=== PATIENT | female | born 1955 | race Caucasian/White ===

== ENCOUNTER 2022-11-01 14:00 | Inpatient (IN) | payer MEDICARE ==
[~2022-11-01] VITALS: Ht 172.7 cm; Wt 72.3 kg
[2022-11-01 15:04] LABS: Hematocrit 39.1 % (33.0-51.0); Hemoglobin 13.1 g/dL (11.5-16.0); Mean Corpuscular HGB 30.3 pg (26.0-34.0); Mean Corpuscular HGB Conc 33.5 g/dL (31.5-36.5); Mean Corpuscular Volume 90 fL (80-100); Mean Platelet Volume 9.1 fL (9.1-12.4); Platelet Count 445 K/mm3 (150-400); RDW Coefficient Variation 13.1 % (11.7-14.2); RDW Standard Deviation 43.4 fL (35.1-46.3); Red Blood Cell Count 4.33 M/mm3 (3.80-5.20); White Blood Cell Count 25.55 K/mm3 (4.00-11.30)
[2022-11-01 15:15] LABS: Albumin/Globulin Ratio 0.3 (0.8-1.8); Bilirubin, Total 0.3 mg/dL (0.1-1.0); Bun/Creatinine Ratio 22.5 (12.0-20.0); Calcium, Blood 14.9 mg/dL (8.5-10.1); Creatinine, Blood 1.38 mg/dL (0.40-1.00); Globulin, Blood 6.3 g/dL (2.2-4.0); Potassium, Blood 3.4 mmol/L (3.5-5.5); Total Protein, Blood 8.3 g/dL (6.4-8.2)
[2022-11-01 15:33] LABS: BAND PERCENT MAN 2 % (0-8); BASOPHILS PERCENT MAN 0 % (0-2); EOSINOPHILS ABSOLUTE MAN 0.25 K/mm3 (0.00-0.68); EOSINOPHILS PERCENT MAN 1 % (0-6); LYMPHOCYTES ABSOLUTE MAN 1.27 K/mm3 (0.84-5.20); LYMPHOCYTES PERCENT MAN 5 % (21-46); MONOCYTES ABSOLUTE MAN 1.53 K/mm3 (0.16-1.47); MONOCYTES PERCENT MAN 6 % (4-13); NEUTROPHILS ABSOLUTE MAN 22.48 K/mm3 (1.96-9.15); SEG NEUTROPHILS PERCENT MAN 86 % (41-73); TOTAL CELLS COUNTED 100
[2022-11-01 15:34] LABS: Influenza A, PCR NEGATIVE (NEGATIVE); Influenza B, PCR NEGATIVE (NEGATIVE); Resp Syncytial Virus, PCR NEGATIVE (NEGATIVE); SARS-Cov-2 (COVID-19) PCR, MMC NEGATIVE (NEGATIVE)
[2022-11-01 18:49] LABS: Free Thyroxine 1.36 ng/dL (0.70-1.60)
[2022-11-01 18:51] LABS: Thyroid Stimulating Hormone 1.57 uIU/mL (0.360-4.800); Triiodothyronine, Free 1.53 pg/mL (2.18-3.98)
[2022-11-01 20:55] LABS: Base Excess Venous 5.8 mmol/L; Bicarbonate Venous 28.8 mmol/L (24.0-30.0); pH Blood Venous 7.41 (7.34-7.37)
--- NOTE | 2022-11-01 21:45 | NUR ---
RECEIVED HAND OFF FROM Benito ALDRICH RN USING SBAR. TRANSPORTED TO ROOM PCU 18 VIA STRETCHER. TRANSFERED TO BED WITH FULL STAFF ASSIST, TOLERATED WELL. AAOX3, TERRELL, FOLLOWS ALL COMMANDS. TRANSFERED TO BED WITH FULL STAFF ASSISTANCE DUE TO GENERALIZED WEAKNESS. ORIENTED TO ROOM, CALL SYSTEM, AND POC, VOICES UNDERSTANDING. RESPIRATIONS LABORED WITH EXERTION ON O2 AT 2L/NC. LUNG SOUNDS COARSE WITH CRACKLES, AND DIMINISHED IN ALL SCHAFER. REPORTS A NONPRODUCTIVE COUGH. ABDOMEN SOFT AND NONDISTENDED. BOWEL SOUNDS NOTED IN ALL QUADS. STATES THAT SHE HAD A NORMAL BM TODAY. REPORTED THAT SHE HAS BEEN INCONTINENT OF BLADDER AT HOME DUE TO WEAKNESS. RASH NOTED FROM LOW BACK TO MID THIGH REPORTEDLY FROM INCONTINENCE AND WEAKNESS. RIGHT AND LEFT FA'S WITH 20G PIV ARE PATENT, EACH FLUSHING WITH EASE. NO EDEMA NOTED. SCD'S APPLIED PER MD ORDERS. DENIES PAIN, DISCOMFORT, OR FURTHER NEEDS AT THIS TIME. ADMISSION ASSESSMENT IN PROGRESS. SAFETY MEASURES IN PLACE. WILL CONTINUE TO MONITOR AND ADDRESS NEEDS THEY ARISE.
--- NOTE | 2022-11-02 03:25 | NUR ---
ROUNDING ON PT AFTER O2 SAT SHOWED LOW. BRIEF SATURATED IN BERNARDINO CONCENTRATED FOUL SMELLING URINE. PERICARE, BRIEF CHANGE, AND PARTIAL OCCUPOED BED CHANGE COMPLETED WITH PT ASSISTANCE WITH TURNING IN BED. WARM BLANKETS PROVIDED FOR HER COMFORT. SAFETY MEAURES IN PLACE. WILL CONTINUE TO MONITOR AND ADDRESS NEEDS THEY ARISE.
[2022-11-02 04:23] LABS: BASOPHILS ABSOLUTE AUTO 0.09 K/mm3 (0.00-0.23); BASOPHILS PERCENT AUTO 0 % (0-2); EOSINOPHILS ABSOLUTE AUTO 0.51 K/mm3 (0.00-0.68); EOSINOPHILS PERCENT AUTO 2 % (0-6); Hematocrit 32.4 % (33.0-51.0); Hemoglobin 10.8 g/dL (11.5-16.0); IMMATURE GRAN ABSOLUTE AUTO 0.44 K/mm3 (0.00-0.10); IMMATURE GRAN PERCENT AUTO 2 % (0-1); LYMPHOCYTES ABSOLUTE AUTO 1.29 K/mm3 (0.84-5.20); LYMPHOCYTES PERCENT AUTO 5 % (21-46); MONOCYTES ABSOLUTE AUTO 2.25 K/mm3 (0.16-1.47); MONOCYTES PERCENT AUTO 9 % (4-13); Mean Corpuscular HGB 29.9 pg (26.0-34.0); Mean Corpuscular HGB Conc 33.3 g/dL (31.5-36.5); Mean Corpuscular Volume 90 fL (80-100); Mean Platelet Volume 9.3 fL (9.1-12.4); NEUTROPHILS ABSOLUTE AUTO 20.82 K/mm3 (1.96-9.15); NEUTROPHILS PERCENT AUTO 82 % (41-73); Platelet Count 398 K/mm3 (150-400); RDW Coefficient Variation 13.2 % (11.7-14.2); RDW Standard Deviation 43.9 fL (35.1-46.3); Red Blood Cell Count 3.61 M/mm3 (3.80-5.20)
[2022-11-02 04:36] LABS: International Normalized Ratio 1.14; Prothrombin Time Results 11.9 Sec (9.7-11.5)
[2022-11-02 04:44] LABS: Magnesium, Blood 1.6 mg/dL (1.6-2.4)
[2022-11-02 04:55] LABS: Albumin, Blood 1.5 g/dL (3.4-5.0); Albumin/Globulin Ratio 0.3 (0.8-1.8); Bilirubin, Total 0.2 mg/dL (0.1-1.0); Bun/Creatinine Ratio 21.6 (12.0-20.0); Calcium, Blood 13.7 mg/dL (8.5-10.1); Creatinine, Blood 1.16 mg/dL (0.40-1.00); Globulin, Blood 4.8 g/dL (2.2-4.0); Potassium, Blood 3.6 mmol/L (3.5-5.5)
[2022-11-02 04:59] LABS: Total Protein, Blood 6.3 g/dL (6.4-8.2)
--- NOTE | 2022-11-02 06:08 | NUR ---
LYING IN SEMI FOWLERS WITH EYES CLOSED, HAS RESTED WELL SINCE ADMISSION. CONTINUES WITH TACHYCARDIA WITH EXERTION. RIGHT FA 20G PIV REMAIN PATENT WHILE INFUSING NS AT 200ML/HR. LEFT FA SL 20G REMAINS PATENT. INCONTINENT OF BLADDER, BRIEF PLACED AFTER SHE SATURATED BED. REMAINS ON O2 AT 2L/NC. DENIES PAIN, DISCOMFORT, OR FURTHER NEEDS. SAFETY MEASURES IN PLACE. WILL CONTINUE TO MONITOR AND ADDRESS NEEDS THEY ARISE.
--- NOTE | 2022-11-02 09:36 | NUR ---
Joint visit with Dr Casarez, this PC RN, and Primary RN Marlene. Dr Casarez reviews plan of care and discusses imaging findings including the suspicion of cancer. Dr Casarez discusses options including scheduling biopsy and consulting oncology. Pt is in agreement with this option. After Dr Hermelindo rizzo examining Pt this RN remained behind and offered supportive visit. Offered therapeutic listening, answered questions, and validated concerns. Received verbal permission from Pt to call her daughter to include her with this news. Called and spoke with daughter Leatha. Provided update, reviewed plan of care, and answered questions. Leatha reports plan to leave house in [place] soon and will arrive at the hospital in a couple of hours. Provided Palliative Care contact information and instructed to call with any questions or concerns. Palliative Care will remain available for supportive visits.
[2022-11-02 12:18] LABS: Source, Urine Clean Catch
[2022-11-02 12:26] LABS: Bilirubin, Urine Neg (Neg); Blood, Urine 1+ (Neg); Glucose Qualitative, Urine Neg (Neg); Ketones, Urine Neg (Neg); Leukocyte Esterase, Urine Neg (Neg); Nitrite, Urine Neg (Neg); Protein, Urine 2+ (Neg); Urobilinogen, Urine NORM (Normal)
[2022-11-02 12:35] LABS: Appearance, Urine Clear (Clear); Color, Urine Yellow (P-Yellow)
[2022-11-02 12:37] LABS: Bacteria Rare /hpf; Red Blood Cells, Urine 0-2 /hpf (0-2); Squamous Epithelial Cells Few /hpf (Few)
--- NOTE | 2022-11-02 13:48 | NUR ---
Mutliple visits today as Pt's children arrives to offer support and answer questions. Pt and family agreeable for biopsy and oncology consult. Palliative Care will remain available.
--- NOTE | 2022-11-02 18:24 | NUR ---
SHIFT SUMMARY ASSUMED CARE AT 0700. A/A/OX2-3. CONFUSED AT TIMES EARLIER IN SHIFT BUT GRADUALLY IMPROVES. MOVES SELF ON GURNEY NEEDED, WORKED WITH PHYSICAL THERAPY TODAY. FAMILY AT BEDSIDE AND MET WITH PALLATIVE CARE. 5L 02 VIA [place] TO MAINTAIN SATS OF 93%. YAN CATH PLACED TODAY AND 24 HOUR URINE STARTED AT 10AM. NO ACUTE MEDICAL CHANGES, VSS, WILL CONTINUE TO MONITOR AND TREAT UNTTIL CHANGE OF SHIFT.
[2022-11-03 03:52] LABS: BASOPHILS ABSOLUTE AUTO 0.09 K/mm3 (0.00-0.23); BASOPHILS PERCENT AUTO 0 % (0-2); EOSINOPHILS ABSOLUTE AUTO 0.65 K/mm3 (0.00-0.68); EOSINOPHILS PERCENT AUTO 3 % (0-6); Hematocrit 30.5 % (33.0-51.0); Hemoglobin 10.3 g/dL (11.5-16.0); IMMATURE GRAN ABSOLUTE AUTO 0.45 K/mm3 (0.00-0.10); IMMATURE GRAN PERCENT AUTO 2 % (0-1); LYMPHOCYTES ABSOLUTE AUTO 1.21 K/mm3 (0.84-5.20); LYMPHOCYTES PERCENT AUTO 5 % (21-46); MONOCYTES ABSOLUTE AUTO 1.82 K/mm3 (0.16-1.47); MONOCYTES PERCENT AUTO 8 % (4-13); Mean Corpuscular HGB 30.6 pg (26.0-34.0); Mean Corpuscular HGB Conc 33.8 g/dL (31.5-36.5); Mean Corpuscular Volume 91 fL (80-100); Mean Platelet Volume 9.1 fL (9.1-12.4); NEUTROPHILS ABSOLUTE AUTO 19.52 K/mm3 (1.96-9.15); NEUTROPHILS PERCENT AUTO 82 % (41-73); Platelet Count 379 K/mm3 (150-400); RDW Coefficient Variation 13.5 % (11.7-14.2); RDW Standard Deviation 44.4 fL (35.1-46.3); Red Blood Cell Count 3.37 M/mm3 (3.80-5.20); White Blood Cell Count 23.74 K/mm3 (4.00-11.30)
[2022-11-03 05:59] LABS: Bun/Creatinine Ratio 15.7 (12.0-20.0); Calcium, Blood 12.9 mg/dL (8.5-10.1); Creatinine, Blood 1.08 mg/dL (0.40-1.00); Potassium, Blood 3.5 mmol/L (3.5-5.5)
--- NOTE | 2022-11-03 06:33 | NUR ---
POSSIBLY NEEDING SOMETHING OTHER THAN TYLENOL FOR PAIN? IT WAS DIFFICULT TO GET A CONSISTENT RESPONSE FROM PT REGARDING PAIN LEVEL AND LOCATION HOWEVER SHE CONTINUED TO MAKE MOANING SOUNDS AND RESIST MOVEMENT OR REPOSITIONING THROUGHOUT THE NIGHT DESPITE RECIEVING ORDERED TYLENOL, WHEN ASKED HOWEVER IF TYLENOL WAS EFFECTIVE PT DID SAY YES. TMAX 99.8, ST UP TO 120-130 BUT ENDING THE SHIFT SR AT 97, 3LPM NC, 24 HR URINE IN PROGRESS AND WILL COMPLETE AT 1000, CALCIUM IMPROVED THIS AM 12.7
[2022-11-03 08:28] LABS: Carcinoembryonic Antigen 24.5 ng/mL (0.0-3.0)
[2022-11-03 08:35] LABS: Cancer Antigen 125 106.7 U/mL (1.5-35.0)
--- NOTE | 2022-11-03 12:24 | NUR ---
AM NOTE: PATIENT ALERT AND ORIENTED TO SELF, PLACE AND FAMILY. VERY SOFT SPOKEN AND WITHDRAWN. PATIENT DENIES PAIN ALL AM, BUT MOAN AND GROANS WHEN MOVING. WHEN WORKING WITH PT, SHE COMPLAINS OF BACK PAIN, MEDICATED PER EMAR WITH TYLENOL. VERY WEAK AND FRAGILE. ON 3L NASAL CANNULA SATING 93% UPON SHIFT START. PATIENT ROLLED TO CHANGE LINEN AND BOOST IN BED FOR BREAKFAST AND DESATED TO MID 80'S. UNABLE TO RECOVER ON 3L. RESP CALLED, TITRATED UP TO 15L HIGH FLOW NASAL CANNULA. NOW AT 8L HIGH FLOW SATING 90-93%. DENIES SOB. SOME CRACKLES HEARD WELL COARSENESS. OCCASIONAL MOIST SOUNDING COUGH. TELE SHOWING SR/ST WITH HR 90-110'S. DENIES CHEST PAIN/PRESSURE. PPP. BP STABLE. NO SIGNS OF EDEMA. DENIES ABDOMINAL PAIN/NAUSEA. EATING SMALL AMOUNTS. TAKING PILLS CRUSHED OR CUT IN HALF. YAN CATH IN PLACE DRAINING CLEAR/YELLOW URINE. 24 HOURS URINE SAMPLE SENT TO LAB THIS AM. SLEEPING ON AND OFF. DENIES NEED AT THIS TIME. PLAN FOR ONCOLOGY CONSULT. WILL CONTINUE TO MONITOR.
[2022-11-03 12:33] LABS: Calcium, Urine 17.9 mg/dL (< 17.5); Calcium, Urine Calculation 554.9 mg/24hrs (42.0-353.0)
[2022-11-03 16:11] LABS: Bun/Creatinine Ratio 15.6 (12.0-20.0); Calcium, Blood 12.9 mg/dL (8.5-10.1); Creatinine, Blood 1.09 mg/dL (0.40-1.00); Potassium, Blood 3.4 mmol/L (3.5-5.5)
--- NOTE | 2022-11-03 16:33 | NUR ---
DR. GERONIMO CALLED TO UPDATE ON POTASSIUM RESULTING AT 3.4 WELL PATIENT COMPLAINING OF INCREASED PAIN. UNABLE TO GIVE TYLENOL FOR ANOTHER FEW HOURS. THIS RN REQUESTING ADDITIONAL PAIN MEDICATION FOR BREAK THROUGH PAIN. NO NEW ORDERS FOR THIS RN TO PLACE.
--- NOTE | 2022-11-03 18:27 | NUR ---
SHIFT SUMMARY: PATIENT REMAINS WEAK AND LETHARGIC THROUGHOUT SHIFT. DESATING WITH MOVEMENTS. OXYGEN RANGING FROM 6-15L HIGH FLOW NASAL CANNULA. DENIES SOB. COMPLAINS OF GENERAL PAIN AND BACK PAIN. MEDICATED PER EMAR. REMAINS SR/ST ON TELE WITH HR 90-110'S. DENIES CHEST PAIN/PRESSURE. BP REMAINS STABLE. EATING SMALL AMOUNTS WELL DRINKING ENSURE. SON IN TO VISIT AND UPDATED ON PLAN OF CARE. WAITING FOR ONCOLOGY CONSULT. 24 HOUR URINE COLLECTED THIS SHIFT. NS CONTINUES TO INFUSE AT 100 ML/HR.
[2022-11-04 03:49] LABS: BASOPHILS ABSOLUTE AUTO 0.08 K/mm3 (0.00-0.23); BASOPHILS PERCENT AUTO 0 % (0-2); EOSINOPHILS ABSOLUTE AUTO 0.53 K/mm3 (0.00-0.68); EOSINOPHILS PERCENT AUTO 2 % (0-6); Hematocrit 31.9 % (33.0-51.0); Hemoglobin 10.4 g/dL (11.5-16.0); IMMATURE GRAN ABSOLUTE AUTO 0.61 K/mm3 (0.00-0.10); IMMATURE GRAN PERCENT AUTO 2 % (0-1); LYMPHOCYTES ABSOLUTE AUTO 1.05 K/mm3 (0.84-5.20); LYMPHOCYTES PERCENT AUTO 4 % (21-46); MONOCYTES PERCENT AUTO 8 % (4-13); Mean Corpuscular HGB Conc 32.6 g/dL (31.5-36.5); Mean Corpuscular Volume 92 fL (80-100); Mean Platelet Volume 9.2 fL (9.1-12.4); NEUTROPHILS ABSOLUTE AUTO 21.48 K/mm3 (1.96-9.15); NEUTROPHILS PERCENT AUTO 83 % (41-73); Platelet Count 395 K/mm3 (150-400); RDW Coefficient Variation 13.7 % (11.7-14.2); RDW Standard Deviation 45.7 fL (35.1-46.3); Red Blood Cell Count 3.47 M/mm3 (3.80-5.20); White Blood Cell Count 25.75 K/mm3 (4.00-11.30)
--- NOTE | 2022-11-04 05:43 | NUR ---
PT PAIN DID EXTREMELY WELL WITH THE 1 DOSE OF NORCO, SHE WAS ABLE TO ASSIST IN TURNING, NO ASISTANCE NEEDED WITH DRINKING, USING THE REMOTE, ETC...WEANED DOWN TO 8LPM UNTIL LAYING FLAT FOR CLEANING, PT VOMITED AND RECIEVED ONE DOSE OF ZOFRAN IV, O2 INCREASED TO 15 LPM, ALSO REQUIRED NRB ADDITIONALY FOR 15 MIN TO FULLY RECOVER, BM OVERNIGHT, GOOD UO, NO CHANGE IN VS, AFEBRILE
[2022-11-04 09:45] LABS: Albumin, Blood 1.4 g/dL (3.4-5.0); Albumin/Globulin Ratio 0.3 (0.8-1.8); Bilirubin, Total 0.2 mg/dL (0.1-1.0); Bun/Creatinine Ratio 15.1 (12.0-20.0); Creatinine, Blood 1.06 mg/dL (0.40-1.00); Potassium, Blood 3.7 mmol/L (3.5-5.5); Total Protein, Blood 6.4 g/dL (6.4-8.2)
[2022-11-04 09:46] LABS: Calcium, Blood 13.7 mg/dL (8.5-10.1)
--- NOTE | 2022-11-04 18:39 | NUR ---
PT SUMMARY: PT HAS BEEN ON 15L OF O2 VIA NASAL CANNULA HI BERNARD, PT DESATS WITH EXERTION USES NON REBREATHER MASK AT THE BEDSIDE TO RECOVER, PT RECOVERS QUICK. SATS WILL STAY ABOVE 90% WHEN SLEEPING AND NOT MOVING, PT DESATS TO 85% WHEN AWAKE AND EATING. PT INSTRUCTED ABOUT THE USE ON NON REBREATHER MASK AND PT WAS ABLE TO DEMONSTRATE AND HAS BEEN USING SINCE THEN. VITALS HRR SR/ST 90-110'S, SBP 100-110'S, AFEBRILE. PT HAS A LOT OF FAMILY CAME IN TO VISIT AND SUPPORT PT TODAY. ALSO WAS ABLE TO DISCUSS WITH DR WALTERS THE ONCOLOGIST ABOUT THE PLAN, PT TO DO CT BIOPSY PROCEDURE OF [place] TOMORROW AT 2PM, PT RECEIVED A DOSE OF LOVENOX THIS MORNING SO PT WAS ORDERED TO RECHECK IN AM BEFORE THE PROCEDURE AND TO HOLD LOVENOX DOSE IN AM. PT WAS OFFERED PAIN MEDICINE REFUSED AND REQUESTED TYLENOL INSTEAD AND WAS GIVEN, PT PAINFUL WHEN MOVING AND TURNING ALSO STARTED COUGING AND GAGGING AFTER GIVING PT A BED BATH TODAY AND WAS ABLE TO COUGH UP THICK BROWN SPUTUM, SUCTION SET UP AT BEDSIDE PRN, PT ALSO REFUSED ANTI NAUSEA MEDICINE AND HAS JUST BEEN DRINKING SODA SEEMED TO BE EFFECTIVE. PT WAS GIVEN A DOSE OF ZOMETA TODAY DUE TO HIGH CALCIUM LEVELS. PT ABLE TO GET UP TO USE THE BEDSIDE COMMODE HAD A BOWEL MOVEMENT TODAY, NO OTHER ISSUES ENCOUNTERED ABLE TO MAKE NEEDS KNOWN, WILL REPORT TO ONCOMING SHIFT
--- NOTE | 2022-11-04 21:24 | NUR ---
ASSUMPTION OF CARE THIS RN ASSUMED CARE OF PATIENT AT 1900. REPORT TAKEN FROM DELORES PEDRO. PATIENT ON 15L VIA NC WITH 15L NONREBREATHER ON STANDBY. PATIENT REQUIRES NONREBREATHER WITH ACTIVITY SPO2 DESATS INTO THE LOW 80'S WITH ONLY NC ON. PATIENT APPEARS LETHARGIC AND WEAK. BP STABLE. ST ON MONITOR WITH HR 110-120'S. AFEBRILE. PATIENT TOOK MEDICATIONS WELL. ORIENTED X3. CONFUSION ABOUT PLACE AND STATED THAT SHE WAS "IN [facility]". PATIENT BEING TURNED FREQUENTLY AND STATES SHE IS HAVING PAIN "EVERYWHERE" BUT REFUSING MEDICATIONS AT THIS TIME. YAN CATHETER PATENT AND DRAINING TO GRAVITY. BED IN LOWEST POSITION AND CALL LIGHT WITHIN REACH. THIS RN WILL CONTINUE TO MONITOR AND PROVIDE INTERVENTIONS NEEDED/ORDERED DURING THIS SHIFT.
[2022-11-05 04:05] LABS: BASOPHILS PERCENT AUTO 0 % (0-2); EOSINOPHILS ABSOLUTE AUTO 0.59 K/mm3 (0.00-0.68); EOSINOPHILS PERCENT AUTO 2 % (0-6); Hematocrit 32.8 % (33.0-51.0); Hemoglobin 10.4 g/dL (11.5-16.0); IMMATURE GRAN ABSOLUTE AUTO 0.83 K/mm3 (0.00-0.10); IMMATURE GRAN PERCENT AUTO 3 % (0-1); LYMPHOCYTES PERCENT AUTO 3 % (21-46); MONOCYTES ABSOLUTE AUTO 1.62 K/mm3 (0.16-1.47); MONOCYTES PERCENT AUTO 6 % (4-13); Mean Corpuscular HGB 29.7 pg (26.0-34.0); Mean Corpuscular HGB Conc 31.7 g/dL (31.5-36.5); Mean Corpuscular Volume 94 fL (80-100); Mean Platelet Volume 9.3 fL (9.1-12.4); NEUTROPHILS ABSOLUTE AUTO 23.57 K/mm3 (1.96-9.15); NEUTROPHILS PERCENT AUTO 86 % (41-73); Platelet Count 372 K/mm3 (150-400); RDW Coefficient Variation 13.8 % (11.7-14.2); RDW Standard Deviation 47.2 fL (35.1-46.3); White Blood Cell Count 27.41 K/mm3 (4.00-11.30)
[2022-11-05 04:11] LABS: IMMUNOGLOBULIN A, QN, SERUM 387 mg/dL (87-352); IMMUNOGLOBULIN G, QN, SERUM 1313 mg/dL (586-1602); IMMUNOGLOBULIN M, QN, SERUM 123 mg/dL (26-217)
[2022-11-05 04:25] LABS: Bun/Creatinine Ratio 15.2 (12.0-20.0); Calcium, Blood 12.6 mg/dL (8.5-10.1); Creatinine, Blood 0.99 mg/dL (0.40-1.00); Potassium, Blood 3.4 mmol/L (3.5-5.5)
--- NOTE | 2022-11-05 05:17 | NUR ---
SHIFT SUMMARY PATIENT HAS BEEN ALERT/LETHARGIC AND ORIENTED X3. PATIENT ORIGINALLY ON 15L HFNC WITH 15L NONREBREATHER FOR ACTIVITY AT BEGINNING OF SHIFT. PATIENT PROGRESSIVELY STARTED TO DESAT MORE AND REQUIRED MORE TIME WITH BOTH NONREBREATHER AND HFNC ON TO MAINTAIN SAT >90%. RT CONSULTED AND PATIENT PLACED ON AIRVO 50L 70% FIO2 AROUND [id number]. PATIENT HAD A DIFFICULT TIME ADJUSTING TO OXYGEN AND REMOVED AIRVO FREQUENTLY. PATIENT EDUCATED ON NEED FOR OXYGEN. PATIENT MEDICATED FOR PAIN AND WAS ABLE TO RELAX MORE. ST ON MONITOR WITH HR 110-140'S DEPENDENT ON ACTIVITY AND PAIN. PATIENT SUSTAINING 120'S AT THIS TIME WHILE SHE APPEARS TO BE SLEEPING. NS INFUSING PER EMAR. BP STABLE. AFEBRILE. TURNING Q2HRS AND REQUESTED. YAN CATHETER PATENT AND DRAINING LIGHT YELLOW URINE. SUCTIONING NEEDED FOR SPUTUM. THICK YELLOW/BROWN SPUTUM NOTED. RT CLEANED NARES PRIOR TO AIRVO APPLICATION. BED IN LOWEST POSITION AND CALL LIGHT WITHIN REACH. THIS RN WILL CONTINUE TO MONITOR UNTIL SHIFT CHANGE AT 0700.
[2022-11-05 08:35] LABS: International Normalized Ratio 1.18; Prothrombin Time Results 12.3 Sec (9.7-11.5)
--- NOTE | 2022-11-05 11:31 | NUR ---
Pt resting in bed with her eyes closed and on AIRVO. Lots of family at bedsidee. Offered supportive visit and answered questions. Son Cristhian stepped out. Will F/U when son is back. Spoke with Primary RN Ruth and discussed case. Palliative Care will remain available.
--- NOTE | 2022-11-05 17:12 | NUR ---
PT SUMMARY: PT HAD BIOPSY DONE TODAY TOLERATED WELL. PT REMAINED ON AIRVO SETTINGS AT 50L 75% FIO2 SATS KEPT ABOVE 90%, HRR SR/ST 110-150'S HRR INCREASES WHEN PT DESATS, SBP 100-120'S, AFEBRILE. PT DENIES CHEST PAIN/PRESSURE BUT HAS PAIN ALL OVER, NORCO WAS GIVEN X1 THIS MORNING, PT STILL WEAK AND LETHARGIC ALERT AND ORIENTED X3. MULTIPLE FAMILY CAME IN TO VISIT, SON PORSCHE WAS ABLE TO TALK TO [facility] ABOUT PLAN ON GOING HOME HOSPICE. NO OTHER ISSUES ENCOUNTERED PT WITH POOR APPETITE, YAN DRAINING YELLOW URINE VIA GRAVITY. PT REPOSITIONED FOR COMFORT, ABLE TO MAKE NEEDS KNOWN, CALL LIGHTS IN REACH REPORT GIVEN TO KECIA PEDRO.
--- NOTE | 2022-11-05 20:57 | NUR ---
ASSUMPTION OF CARE THIS RN ASSUMED CARE OF PATIENT AT 1900. REPORT TAKEN FROM KECIA PEDRO. PATIENT WITH FAMILY AT BEDSIDE AT TIME OF SHIFT CHANGE. PATIENT ON AIRVO 50L 80% FIO2 WITH SPO2 >90%. LABORED BREATHING NOTED WITHOUT TACHYPNEA. BP STABLE. ST ON THE MONITOR WITH HR 110-120'S. AFEBRILE. PATIENT ABLE TO MAKE NEEDS KNOWNS. ALERT/LETHARGIC AND ORIENTED X3 WITH CONFUSION ABOUT WHAT CITY SHE IS IN BUT KNOWS SHE IS IN THE HOSPITAL AND REMEMBERS PLAN OF CARE AND SITUATION. HOB ELEVATED. MEDICATING FOR PAIN AND NAUSEA PER EMAR. BED IN LOWEST POSITION AND CALL LIGHT WITHIN REACH. THIS RN WILL CONTINUE TO MONITOR AND PROVIDE INTERVENTIONS NEEDED/ORDERED DURING THIS SHIFT.
--- NOTE | 2022-11-05 23:45 | NUR ---
PATIENT UPDATE THIS RN TO BEDSIDE AT 2230 TO INCREASE FIO2 TO 85% DUE TO PATIENT MAINTAINING SPO2 86-88%. FIO2 INCREASE ONLY MAINTAINED O2 SATS AT 88%. THIS RN INCREASED FIO2 TO 100%. WITH SPO2 91-92%. CALL PLACED TO RT TABATHA. RT TABATHA TO BEDSIDE AROUND 2330 TO ASSESS PATIENT AND SETTINGS. RT DID NOT RECOMMEND FURTHER INTERVENTIONS AT THIS TIME D/T PATIENT'S PROGNOSIS. PATIENT REMAINS ON AIRVO 50L AND FIO2 100%. THIS RN ATTEMPTED DEEP BREATHING AND COUGHING TO CLEAR SECRETIONS. COUGH WEAK AND DRY AND NONPRODUCTIVE AT THIS TIME. SUCTION SET UP AT BEDSIDE. OTHER VITALS STABLE WITH NO CHANGES AT THIS TIME. THIS RN WILL CONTINUE TO MONITOR CLOSELY, TITRATING NEEDED TO MAINTAIN SPO2, AND CONSULTING RT APPROPRIATE.
[2022-11-06 04:32] LABS: BASOPHILS ABSOLUTE AUTO 0.09 K/mm3 (0.00-0.23); BASOPHILS PERCENT AUTO 0 % (0-2); EOSINOPHILS ABSOLUTE AUTO 0.54 K/mm3 (0.00-0.68); EOSINOPHILS PERCENT AUTO 2 % (0-6); Hematocrit 33.5 % (33.0-51.0); Hemoglobin 10.7 g/dL (11.5-16.0); IMMATURE GRAN PERCENT AUTO 3 % (0-1); LYMPHOCYTES ABSOLUTE AUTO 0.89 K/mm3 (0.84-5.20); LYMPHOCYTES PERCENT AUTO 3 % (21-46); MONOCYTES ABSOLUTE AUTO 1.78 K/mm3 (0.16-1.47); MONOCYTES PERCENT AUTO 7 % (4-13); Mean Corpuscular HGB 30.2 pg (26.0-34.0); Mean Corpuscular HGB Conc 31.9 g/dL (31.5-36.5); Mean Corpuscular Volume 95 fL (80-100); Mean Platelet Volume 8.9 fL (9.1-12.4); NEUTROPHILS ABSOLUTE AUTO 23.18 K/mm3 (1.96-9.15); NEUTROPHILS PERCENT AUTO 85 % (41-73); Platelet Count 343 K/mm3 (150-400); RDW Standard Deviation 48.9 fL (35.1-46.3); Red Blood Cell Count 3.54 M/mm3 (3.80-5.20); White Blood Cell Count 27.18 K/mm3 (4.00-11.30)
--- NOTE | 2022-11-06 04:36 | NUR ---
SHIFT SUMMARY NO CHANGES TO NEURO STATUS. PATIENT REMAINS WEAK AND LETHARGIC THROUGH MOST OF THIS SHIFT. FOLLOWING DIRECTIONS. NEEDS TO BE REMINDED TO PUT NASAL CANNULA BACK INTO NOSE. CONTINUES TO BE ON AIRVO WITH SETTINGS 50L 100% FIO2 WITH SPO2 89-92%. DESATS QUICKLY WITH EXERTION AND REMOVAL OF CANNULA AND IS SLOW TO RECOVER. PATIENT ENCOURAGED TO DEEP BREATHE AND COUGH THROUGHOUT THIS SHIFT WITH NOTED WEAK NONPRODUCTIVE COUGH. SEE ASSESSMENT AND PREVIOUS NOTE. PATIENT DENIES PAIN AND NAUSEA AT THIS TIME; MEDICATED PREVIOUSLY IN THE SHIFT FOR BOTH. REPOSITIONING Q2HRS AND PRN. YAN CATHETER DRAINING LIGHT YELLOW URINE TO GRAVITY. PATIENT'S BREATHING APPEARS TO BE LABORED AT REST; NO TACHYPNEA NOTED BUT PATIENT OCCASIONALLY DYSPNEIC. BED IN LOWEST POSITION AND CALL LIGHT WITHIN REACH. THIS RN WILL CONTINUE TO MONITOR UNTIL SHIFT CHANGE AT 0700.
[2022-11-06 04:52] LABS: Calcium, Blood 10.7 mg/dL (8.5-10.1); Creatinine, Blood 0.88 mg/dL (0.40-1.00); Potassium, Blood 3.8 mmol/L (3.5-5.5)
--- NOTE | 2022-11-06 05:56 | NUR ---
PATIENT UPDATE THIS RN AND RT TABATHA TO BEDSIDE DUE TO CONTINUED DESATTING TO MID 80'S. AIRVO SETTINGS CHANGED TO 70L AND 100% FIO2. PATIENT MAINTAINING SPO2 AT 89%. REPORTED DYSPNEA AND NOTED LABORED BREATHING. PATIENT REPORTS FEELING "SHE IS NOT GETTING ENOUGH AIR" DESPITE AIRVO SETTINGS. DRY NONPRODUCTIVE COUGH NOTED. PATIENT REPORTED TO THIS RN THAT SHE DID NOT WANT BIPAP AFTER THIS RN EXPLAINED WHAT BIPAP IS. THIS RN CALLED MD MAO REGARDING PATIENT CONDITION AND LACK OF INTERVENTIONS FOR THIS RN TO PROVIDE TO ASSIST PATIENT. MD MAO TO ROOM WITH RT MAYS. PATIENT VERBALIZED TO MD OF NOT WANTING BIPAP. THIS RN, MD MOA, AND RT MAYS SPOKE REGARDING IV STEROIDS AND BREATHING TREATMENTS. MD MAO TO SPEAK TO DAY TEAM ABOUT IV STEROIDS AND PALLIATIVE/COMFORT CARE DECISION. NO FURTHER ORDERS AT THIS TIME. OTHER VITALS STABLE. NO CHANGES SINCE PREVIOUS NOTE/ASSESSMENT. THIS RN WILL REPORT TO ONCOMING RN.
--- NOTE | 2022-11-06 11:35 | NUR ---
0725 - THIS RN ENTERED ROOM AFTER RECEIVING REPORT AND NOTED PT TACHYPNEIC IN THE 30S, ACCESORY MUSCLE USE, O2 SATURATION IN THE 70S, HR IN THE 140S-160S. PLACED A NONREBREATHER OVER PT'S AIRVO PT STATED (AND HAS STATED) NO BIPAP OR INTUBATION. RT, DR. DEUTSCH, AND PALLIATIVE CARE CALLED. ALSO CALLED FAMILY - ITA AND PORSCHE AND UPDATED ON PT STATUS, THEY ARE ON THEIR WAY FROM [place]. RT TO BEDSIDE TO ADJUST FLOW PT MAXED ON SETTINGS, DR. DEUTSCH AND STEVEN - PALLIATIVE CARE AWAITING ARRIVAL OF FAMILY FROM [place].
--- NOTE | 2022-11-06 11:38 | NUR ---
Multiple visit this AM. Spoke with Primary RN Blanca, Dr Serra, and discussed case. Pt's respiratory status is declining and she is refusing BIPAP. When Pt's daughter and son arrive goals of care conversation took place. Gentle education on comfort care philosophy with V/U made by Pt and family. Offered emotional support and answered questions. Pt and family agreeable for comfort care. Placed comfort care order, comfort care order set, D/C maintenance medications, and placed order for Ativan 1-2 mg IV Every 2 Hours PRN for anxiety per V/O from Dr Serra. Palliative Care will F/U for symptom management and supportive visits.
--- NOTE | 2022-11-06 14:26 | NUR ---
"Spiritual Care | Nurse request - EOL Pt. passed approximately 14:10. Family members are present and appropriately grieving. Facilitate a family review and provide pastoral care and support. prayed with family. Family verbalized gratitude for the spiritual care visit. [facility] is the home of choice."
--- NOTE | 2022-11-06 18:20 | NUR ---
"Spiritual Care Visit | Pt. Extubation Pt. is intubated and familly members are present for the [employer] shift change. Family welcomes my visit. Family members are pleasant but a little unsettled about the scheduled extubation. Listem with empathy and a caring presence. Normalize the Pt. experience. Facilitate life review for 90 minutes. Educated spouse on the EOL procdures. Spouse verbalized that she would get input from her sister. Family verbalized gratitude for the spiritual care visit."
== END 2022-11-06 22:28 | DRG 189 ==
LOC: ER 14:00 → PCU 18:18 → ERHOLD 18:18 → PCU 18:18
PROVIDERS: Family Medicine; Internal Medicine; Internal Medicine Hematology & Oncology; Nurse Practitioner Acute Care; Physician Assistant; ADMIT Internal Medicine
PROC: 3E03329 Introduction of Other Anti-infective into Peripheral Vein, Percutaneous Approach (ICD-10-PCS; 2022-11-01)
PROC: 0BBL3ZX Excision of Left Lung, Percutaneous Approach, Diagnostic (ICD-10-PCS; principal; 2022-11-05)
DX: J96.01 Acute respiratory failure with hypoxia (principal); A41.9 Sepsis, unspecified organism; G92.8 Other toxic encephalopathy; J18.9 Pneumonia, unspecified organism; R65.20 Severe sepsis without septic shock; C78.1 Secondary malignant neoplasm of mediastinum; C78.02 Secondary malignant neoplasm of left lung; C78.01 Secondary malignant neoplasm of right lung; C79.89 Secondary malignant neoplasm of other specified sites; N17.9 Acute kidney failure, unspecified; N39.0 Urinary tract infection, site not specified; E87.20 Acidosis, unspecified; Z20.822 Contact with and (suspected) exposure to COVID-19; Z66 Do not resuscitate; Z51.5 Encounter for palliative care; E83.52 Hypercalcemia; E87.5 Hyperkalemia; E21.0 Primary hyperparathyroidism; E55.9 Vitamin D deficiency, unspecified; E87.6 Hypokalemia; E86.0 Dehydration; C55 Malignant neoplasm of uterus, part unspecified; Z90.89 Acquired absence of other organs; Z87.891 Personal history of nicotine dependence
CPT/HCPCS: 0241U; 32408; 36415; 51702; 71046; 71260; 74177; 77012; 80048; 80053; 81001; 82306; 82340; 82378; 82550; 82784; 82803; 83605; 83690; 83735; 83880; 83970; 84145; 84439; 84443; 84481; 84484; 85025; 85610; 86304; 87040; 87077; 87081; 87086; 87186; 88305; 88341; 88342; 93005; 93010; 94640; 94664; 94760; 94762; 96365-59; 96375-59; 97110; 97161; 99285-25; A9270; J0456; J0696; J1650; J1940; J2060; J2270; J2405; J2543; J3475; J3480; J3489; J7030; J7050; J7120; Q9967